=== PATIENT | male | born 1940 | race Caucasian/White ===

== ENCOUNTER → 2019-02-26 | Outpatient (CLI) | payer OTHER ==
[~2019-02-26] MED LIST: FISH OIL 1,001000 M2 PO; HOMATROPINE HYDR5 ML OPHTHALMIC; MELATONIN3 MG PO; NEURONTIN 300300 M1 PO; NEURONTIN600 MG PO; OXYCODONE HCL 55 MG PO; PRED FORTE 1% EY5 M1 OPHTHALMIC; REFRESH CELLUVI1 APP OPHTHALMIC; SELENIMIN50 MCG PO; TRAMADOL 50 MG50 MG PO; VALACYCLOVIR1000 MG PO; VITAMINC500 PO
== END ==
LOC: M.PC 07:00
DX: B02.29 Other postherpetic nervous system involvement (principal); R26.9 Unspecified abnormalities of gait and mobility; Z85.038 Personal history of other malignant neoplasm of large intestine

== ENCOUNTER → 2019-03-14 | Outpatient (CLI) | payer OTHER | LOC: M.PC 05:30 | DX: B02.29 Other postherpetic nervous system involvement (principal); R26.9 Unspecified abnormalities of gait and mobility ==